=== PATIENT | female | born 1960 | race Hispanic/Latino ===

== ENCOUNTER 2016-12-15 14:55 | Emergency (ER) | payer OTHER ==
[2016-12-15 15:11] VITALS: BP 157/55; PULSE 69; RESP 16; TEMP 98.4; O2SAT 100
--- NOTE | 2016-12-15 15:40 | ED PDOC ---
Lower Extremity Pain/Injury Time Seen by Provider: 12/15/16 15:09 Chief Complaint (Nursing): Lower Extremity Problem/Injury Chief Complaint (Provider): right foot pain History Per: Patient Severity: Moderate Additional Complaint(s): 56 year old female with a pertinent medical history of plantar fasciitis, and hypertension presents to the ED with complaints of right foot pain that started today. She reports that she was at work, and she briefly ran and "felt a tear or a pop" in the arch of her foot. Patient received injection to plantar aspect of right foot about 6 weeks ago by a geophysical prospecting surveyor in [place], [place] and this did help the pain somewhat. Patient also states she takes mobic daily which helps only minimally with the foot pain. PMD: not provided [employer]: [facility]. Past Medical History Reviewed: Historical Data, Nursing Documentation, Vital Signs Vital Signs: Last Vital Signs Temp 98.4 F 12/15/16 15:08 Pulse 69 12/15/16 15:08 Resp 16 12/15/16 15:08 BP 157/55 H 12/15/16 15:08 Pulse Ox 100 12/15/16 15:08 - Medical History PMH: HTN - Surgical History Surgical History: Tonsillectomy - Family History Family History: States: No Known Family Hx - Living Arrangements Living Arrangements: With Family - Social History Current smoker - smoking cessation education provided: No Alcohol: None Drugs: Denies - Home Medications Home Medications: Ambulatory Orders Medication Instructions Recorded Ibuprofen [Motrin Tab] 800 mg PO Q8 PRN #20 tab 12/15/16 traMADol [Ultram] 50 mg PO TID PRN #15 tab 12/15/16 - Allergies Allergies/Adverse Reactions: Allergies Allergy/AdvReac Type Severity Reaction Status Date / Time No Known Allergies Allergy Verified 12/15/16 15:08 Wells Criteria for PE - Wells Criteria for Pulmonary Embolism Clinical Signs and Symptoms of DVT: No P.E is #1 Diagnosis, or Equally Likely: No Heart Rate >100: No Immobilization at least 3 days;Surgery previous 4 weeks: No Previous, objectively diagnosed PE or DVT: No Hemoptysis: No Malignancy w/treatment within 6 months, or palliative: No Total Score: 0 Review of Systems ROS Statement: Except As Marked, All Systems Reviewed And Found Negative Musculoskeletal: Positive for: Foot Pain (right foot pain) Physical Exam - Reviewed Nursing Documentation Reviewed: Yes Vital Signs Reviewed: Yes - Physical Exam Appears: Positive for: Well, Non-toxic, No Acute Distress Head Exam: Positive for: ATRAUMATIC, NORMOCEPHALIC Skin: Positive for: Normal Color. Negative for: Rash Respiratory: Negative for: Respiratory Distress Extremity: Positive for: Normal ROM, Tenderness (tenderness to plantar aspect of right foot.), Swelling (right foot: mild soft tissue swelling) Neurologic/Psych: Positive for: Alert, Oriented (3x) - ECG O2 Sat by Pulse Oximetry: 100 (RA) Pulse Ox Interpretation: Normal - Other Rad Left foot x-ray X-Ray: Interpreted by Me, Viewed By Me X-Ray Interpretation: no fx, no dis, heel spur noted Medical Decision Making Medical Decision Makin:09 Initial impression: 56 year old female with right foot pain. Initial plan: * XRay foot right 3 views * tylenol 975mg PO * Podiatry consult Patient was seen by podiatry resident at bedside, MRI of right foot ordered. Resident applied diaz wrap and ortho shoe. Rx for motrin and tramadol given. Patient was instructed to follow up in office with Dr. Montes. Patient was give preliminary MRI report from [facility] and MRI on disc. Scribe Attestation: Documented by Tami Leggett, acting as a scribe for Charito Villalobos PA-C. Provider Scribe Attestation: All medical record entries made by the Scribe were at my direction and personally dictated by me. I have reviewed the chart and agree that the record accurately reflects my personal performance of the history, physical exam, medical decision making, and the department course for this patient. I have also personally directed, reviewed, and agree with the discharge instructions and disposition. Disposition - Clinical Impression Clinical Impression: Plantar fasciitis of right foot - Patient ED Disposition Is Patient to be Admitted: No Counseled Patient/Family Regarding: Studies Performed, Diagnosis, Need For Followup, Rx Given - Disposition Referrals: Erlin Montes MD [Staff Provider] - Disposition: Routine/Home Disposition Time: 18:08 Condition: STABLE Additional Instructions: Ice and elevate affected area. Take rx meds as directed as needed for pain. Stop taking meloxicam if you take motrin. Follow up as directed with Dr. Motnes. Prescriptions: Ibuprofen [Motrin Tab] 800 mg PO Q8 PRN #20 tab PRN Reason: Pain, Moderate (4-7) traMADol [Ultram] 50 mg PO TID PRN #15 tab PRN Reason: Pain, Moderate (4-7) Instructions: Plantar Fasciitis (ED)
--- NOTE | 2016-12-15 17:16 | CP.PCM.CON ---
History of Present Illness - History of Present Illness History of Present Illness: 56 y/o female with PMHx of HTN seen at bedside in ED for pain in her right heel. Pt states that she was working today and suddenly she heard a pop from her foot. Pt states that she felt pain to her heel after the pop. Pt states that she has been diagnosed with plantar fasciitis for over a year. Pt states that she has had multiple treatments for the pain previously. Pt states that she has had 2 injections previously. Pt states that she has taken Meloxicam, tylenol previously. Pt states that she has orthotics which she wears about 80% of the time. Pt states that she ices her foot as well as does stretching exercises. Pt denies of any of the treatment helping her with the pain. Pt denies of any recent other complains. PMHx: HTN PSHx: none Allergies: N.K.D.A Medications: Lisinopril Review of Systems - Constitutional Constitutional: As Per HPI Past Patient History - Past Social History Alcohol: None Drugs: Denies - CARDIAC Hx Hypertension: Yes - PSYCHIATRIC Hx Substance Use: No - SURGICAL HISTORY Hx Tonsillectomy: Yes Meds Allergies/Adverse Reactions: Allergies Allergy/AdvReac Type Severity Reaction Status Date / Time No Known Allergies Allergy Verified 12/15/16 15:08 Physical Exam - Constitutional Appears: Well, Non-toxic, No Acute Distress - Extremities Exam Additional comments: VASC: DP/PT pulses are palpable 2/4 b/l. EXPORT CLERK: <3 sec x 10, Temp. gradient: warm to cool, no varicosities, pedal hair absent DERM: nails are cut to hygienic length, no interdigital maceration, no open lesions, no clinical suspicion of infection NEURO: Tinnel sign: negative; sensory and motor sensation grossly intact ORTHO: pain upon palpation of the medial tubercle of the calc., medial arch created on Jose Armando's test, no palpable defect noted on palpation of the course of the plantar fascia, MMT: 5/5 on DF, PF, Inversion and eversion b/l - Neurological Exam Neurological exam: Alert, Oriented x3 - Psychiatric Exam Psychiatric exam: Normal Affect, Normal Mood Results - Vital Signs Recent Vital Signs: Last Vital Signs Temp 98.4 F 12/15/16 15:08 Pulse 69 12/15/16 15:08 Resp 16 12/15/16 15:08 BP 157/55 H 12/15/16 15:08 Pulse Ox 100 12/15/16 16:47 Assessment & Plan - Assessment and Plan (Free Text) Assessment: 56 y/o female seen at bedside in ED for pain in her heel bone secondary to chronic plantar fasciitis and possible tear of plantar fascia Plan: Pt evaluated and chart reviewed Pt discussed in details with attending Dr. Montes Labs, charts and vitals reviewed MRI of the R foot ordered r/o soft tissue tear MAXINE bandage applied to the right foot and pt placed in surgical shoe Pt educated to follow up with Dr. Montes or her home marble coper (Dr. Bryan in [place], [place]) Pt educated to remain in surgical shoe when weightbearing and apply ice and elevate the leg when resting Pt demonstrated verbal understanding - Date & Time Date: 12/15/16 Time: 17:21
--- NOTE | 2016-12-15 18:15 | RAD ---
PROCEDURE: Right Foot Radiographs. HISTORY: trauma COMPARISON: None. FINDINGS: BONES: Normal. No fracture. Plantar and Achilles Tendon insertion calcaneal spurs. JOINTS: Normal. SOFT TISSUES: Normal. OTHER FINDINGS: None. IMPRESSION: No acute findings related to/accounting for the clinical presentation.
--- NOTE | 2016-12-16 11:25 | MRI ---
MRI right foot History: Plantar pain. Evaluate for plantar fascial tear. Comparison: None available. Technique: Multi-echo multiplanar sequences were performed through plantar fascia without the use of intravenous contrast. Findings: Marked thickening with increased signal seen within the visualized plantar fascia at its insertion on the inferior calcaneus with the plantar fascia measuring up to 9 millimeters suggestive for a severe plantar fasciitis. In addition, at the insertion of the plantar fascia on the inferior calcaneus, there is a focal area of fluid intensity signal measuring 4 millimeters best seen on series 8, image 42 and series 4, image 12 suggestive for a small focal full-thickness tear. Achilles tendon is preserved. Sinus tarsi is preserved. Small ankle joint effusion. 8 millimeter subchondral cyst formation noted within the posterior distal tibia at the tibiotalar joint space. 4 millimeter focal area of osteochondral change and or subchondral cyst formation noted within the posterior medial cuneiform bone at its articulation with the navicular bone. Anterior extensor tendons are preserved. Mild tenosynovitis of the medial flexor tendon sheaths. Peroneal tendons are preserved. Anterior and posterior talofibular ligaments are preserved. Moderate hallux valgus deformity with osteochondral change and or subchondral cyst formation at the 1st metatarsal head. Lisfranc ligament is preserved. Degenerative changes with osteochondral change seen at the lateral aspect of the medial cuneiform bone near its articulation with the middle cuneiform bone. Deltoid ligament is preserved. Impression: 1. Marked thickening with increased signal seen within the visualized plantar fascia at its insertion on the inferior calcaneus with the plantar fascia measuring up to 9 millimeters suggestive for a severe plantar fasciitis. In addition, at the insertion of the plantar fascia on the inferior calcaneus, there is a focal area of fluid intensity signal measuring 4 millimeters best seen on series 8, image 42 and series 4, image 12 suggestive for a small focal full-thickness tear. 2. Small ankle joint effusion. 3. 8 millimeter subchondral cyst formation noted within the posterior distal tibia at the tibiotalar joint space. 4. 4 millimeter focal area of osteochondral change and or subchondral cyst formation noted within the posterior medial cuneiform bone at its articulation with the navicular bone. 5. Mild tenosynovitis of the medial flexor tendon sheaths. 6. Moderate hallux valgus deformity with osteochondral change and or subchondral cyst formation at the 1st metatarsal head. 7. Degenerative changes with osteochondral change seen at the lateral aspect of the medial cuneiform bone near its articulation with the middle cuneiform bone.
== END 2016-12-15 18:42 | disposition home or self-care (01) ==
LOC: H.ER 14:55
DX: M72.2 Plantar fascial fibromatosis (principal); I10 Essential (primary) hypertension